=== PATIENT | male | born 1980 | race Caucasian/White ===

== ENCOUNTER → 2020-07-25 | Emergency (ER) | payer OTHER ==
[~2020-07-25] VITALS: Ht 170.2 cm; Wt 87.1 kg
[~2020-07-25] MED LIST: DOLOGESIC-DF 51 EACH PO; NORFLEX100MG PO
== END | disposition home or self-care (01) ==
LOC: ER 22:42
DX: R20.2 Paresthesia of skin (principal); M54.5 Low back pain; M79.605 Pain in left leg

== ENCOUNTER 2021-12-11 01:45 | Emergency (ER) | payer OTHER ==
[~2021-12-11] VITALS: Ht 170.2 cm; Wt 85.7 kg
[2021-12-11] MEDS ORDERED: ZITHROMAX500 MG PO (05:22)
[2021-12-11] MEDS ORDERED: ZYNCOF 20-400120 ML PO (05:22)
== END 2021-12-11 05:30 ==
LOC: ER 01:45
DX: J06.9 Acute upper respiratory infection, unspecified (principal); Z20.822 Contact with and (suspected) exposure to COVID-19

== ENCOUNTER 2022-10-27 20:12 | Emergency (ER) | payer OTHER ==
[~2022-10-27] VITALS: Ht 172.7 cm; Wt 80.7 kg
[~2022-10-27 20:12] MED LIST changes: +ZITHROMAX500 MG PO; +ZYNCOF 20-400120 ML PO
== END 2022-10-27 22:57 | disposition home or self-care (01) ==
LOC: ER 20:12
DX: T25.221A Burn of second degree of right foot, initial encounter (principal); T31.0 Burns involving less than 10% of body surface; X10.2XXA Contact with fats and cooking oils, initial encounter; Y93.G3 Activity, cooking and baking; Y92.89 Other specified places as the place of occurrence of the external cause; Y99.9 Unspecified external cause status; N39.0 Urinary tract infection, site not specified; Z88.6 Allergy status to analgesic agent